=== PATIENT | male | born 2000 | race Caucasian/White ===

== ENCOUNTER 2023-03-21 02:04 | Emergency (ER) | payer MEDICAID ==
[~2023-03-21] VITALS: Ht 172.7 cm; Wt 91.0 kg
[2023-03-21 02:09] VITALS: O2SAT 99
[2023-03-21] MEDS: ACETAMINOPHEN 325MG TABLET PO ONE (03:13)
[2023-03-21] MEDS ORDERED: ACET-2708 MT (05:58)
[2023-03-21 07:08] VITALS: BP 136/76; PULSE 100; RESP 18; TEMP 98.1
== END 2023-03-21 02:34 | disposition home or self-care (01) ==
LOC: ER 02:04
DX: S00.83XA Contusion of other part of head, initial encounter (principal); S63.502A Unspecified sprain of left wrist, initial encounter; Z00.00 Encounter for general adult medical examination without abnormal findings; Z88.0 Allergy status to penicillin; Y04.0XXA Assault by unarmed brawl or fight, initial encounter; Y93.89 Activity, other specified; Y92.89 Other specified places as the place of occurrence of the external cause; Y99.8 Other external cause status
CPT/HCPCS: 73090; 73110; 70450; 70486; 29125; 99284; Z7610 ×3